=== PATIENT | female | born 1985 | race Caucasian/White ===

== ENCOUNTER 2017-05-15 10:54 | Emergency (ER) | payer BC ==
[2017-05-15 11:57] VITALS: BP 122/67
--- NOTE | 2017-05-15 12:39 | UC ---
Respiratory Complaint HPI - HPI Summary HPI Summary: Per [place] attendant "Nasal congestion, sore throat, slight fever x3 days. " Has h/o sinus infections and feels consistent. h/o frx'd nose that makes her prone to them. uses amox usually. No exudate. + swollen glands. + nasal congestion. mild AM cough. no wheezing. no asthma. denies . LMP last week. not on OCP - History of Current Complaint Chief Complaint: UCGeneralIllness Stated Complaint: CONGESTION,THROAT COMPLAINT Time Seen by Provider: 05/15/17 12:31 Hx Last Menstrual Period: 1 wk ago - Allergies/Home Medications Allergies/Adverse Reactions: Allergies Allergy/AdvReac Type Severity Reaction Status Date / Time No Known Allergies Allergy Verified 05/15/17 11:53 Home Medications: Home Medications Acetaminophen TAB* [Tylenol TAB*] 650 mg PO Q4H PRN 05/15/17 [History Confirmed 05/15/17] Multivitamins/Minerals TAB* [Thera M Plus TAB*] 1 tab PO DAILY 05/15/17 [ History Confirmed 05/15/17] PMH/Surg Hx/FS Hx/Imm Hx Previously Healthy: Yes Other History Of: Negative For: HIV, Hepatitis B, Hepatitis C, Anticoagulant Therapy - Surgical History Surgical History: None - Family History Known Family History: Positive: Hypertension, Respiratory Disease - GM asthma Negative: Cardiac Disease - Social History Alcohol Use: Occasionally Substance Use Type: None Smoking Status (MU): Never Smoked Tobacco - Immunization History Most Recent Influenza Vaccination: July 2015 Review of Systems Constitutional: Fever - Tmax 99, Fatigue Skin: Negative Eyes: Negative ENT: Sore Throat, Nasal Discharge, Sinus Congestion, Sinus Pain/Tenderness Respiratory: Cough Cardiovascular: Negative Gastrointestinal: Negative Genitourinary: Negative Motor: Negative Neurovascular: Negative Musculoskeletal: Negative Neurological: Negative Psychological: Negative Is Patient Immunocompromised?: No All Other Systems Reviewed And Are Negative: Yes Physical Exam Triage Information Reviewed: Yes Appearance: No Pain Distress, Well-Nourished, Ill-Appearing - mild Vital Signs: Initial Vital Signs Temp 98.2 F 05/15/17 11:54 Pulse 80 05/15/17 11:54 Resp 16 05/15/17 11:54 BP 122/67 05/15/17 11:54 Pulse Ox 99 05/15/17 11:54 Vital Signs Reviewed: Yes Eye Exam: Normal ENT: Positive: Pharyngeal erythema - +, Nasal drainage, TMs normal, Other: - + b /l max and frontal tenderness. Negative: Tonsillar swelling, Tonsillar exudate , Muffled/hoarse voice Dental Exam: Normal Neck exam: Normal Neck: Positive: Supple, Nontender, No Lymphadenopathy Respiratory Exam: Normal Respiratory: Positive: Lungs clear, Normal breath sounds, No respiratory distress, No accessory muscle use. Negative: Crackles, Rhonchi, Stridor, Wheezing Cardiovascular Exam: Normal Cardiovascular: Positive: RRR, No Murmur, Pulses Normal Abdominal Exam: Normal Abdomen Description: Positive: Nontender Musculoskeletal: Negative: No Edema Neurological Exam: Normal Psychological Exam: Normal Skin Exam: Normal UC Diagnostic Evaluation - Laboratory O2 Sat by Pulse Oximetry: 99 Respiratory Course/Dx - Differential Dx/Diagnosis Differential Diagnosis/HQI/PQRI: Bronchitis, Laryngitis, Sinusitis Provider Diagnoses: sinusitis Discharge - Discharge Plan Condition: Stable Disposition: HOME Prescriptions: Amoxicillin PO (*) [Amoxicillin 875 MG (*)] 875 mg PO BID #20 tab Patient Education Materials: Sinusitis (ED) Referrals: Laura Reinoso NP [Primary Care Provider] - 3 Days Additional Instructions: Make sure to take a probiotic daily while on antibiotics to help prevent a potential complication of antibiotic use called c diff. Some well known brands that can be found OTC are [email or web address], [email or web address] and [employer]. Make sure to complete the entire prescription unless advised otherwise by your health care provider
== END 2017-05-15 12:54 | disposition home or self-care (01) ==
LOC: UCCORT 10:54
DX: J32.9 Chronic sinusitis, unspecified (principal)
CPT/HCPCS: 99212; G0463

== ENCOUNTER 2017-05-21 12:28 | Emergency (ER) | payer BC ==
--- NOTE | 2017-05-21 13:38 | UC ---
Respiratory Complaint HPI - HPI Summary HPI Summary: cough for about a week. she was seen here last week for sinus pressure and possible infection and was placed on augmentin. she is still taking this. she denies pain but more pressure in the sinuses. she had hemoptysis today but denies sob or calf symptoms. - History of Current Complaint Stated Complaint: COUGH Time Seen by Provider: 05/21/17 13:24 Hx Obtained From: Patient Hx Last Menstrual Period: 1 wk ago Onset/Duration: Gradual Onset, Lasting Days Timing: Constant Severity Initially: Moderate Severity Currently: Moderate Character: Cough: Productive Aggravating Factors: Deep Breaths, Recumbent Position Alleviating Factors: Nothing Associated Signs And Symptoms: Positive: Hemoptysis, URI, Nasal Congestion. Negative: Dyspnea, Fever, Chills, Calf Pain, Calf Swelling, Edema - Allergies/Home Medications Allergies/Adverse Reactions: Allergies Allergy/AdvReac Type Severity Reaction Status Date / Time No Known Allergies Allergy Verified 05/21/17 13:49 PMH/Surg Hx/FS Hx/Imm Hx Previously Healthy: Yes Other History Of: Negative For: HIV, Hepatitis B, Hepatitis C, Anticoagulant Therapy - Surgical History Surgical History: None - Family History Known Family History: Positive: Hypertension, Respiratory Disease - GM asthma Negative: Cardiac Disease - Social History Alcohol Use: Occasionally Substance Use Type: None Smoking Status (MU): Never Smoked Tobacco - Immunization History Most Recent Influenza Vaccination: July 2015 Review of Systems Respiratory: Cough All Other Systems Reviewed And Are Negative: Yes Physical Exam Triage Information Reviewed: Yes Appearance: Well-Appearing, Obese Vital Signs Reviewed: Yes Eye Exam: Normal Eyes: Positive: Conjunctiva Clear ENT Exam: Normal Neck exam: Normal Neck: Positive: Supple, Nontender, No Lymphadenopathy Respiratory Exam: Normal Respiratory: Positive: Lungs clear, Normal breath sounds, No respiratory distress, No accessory muscle use. Negative: Respiratory distress, Decreased breath sounds, Accessory muscle use, Crackles, Rhonchi, Stridor, Wheezing Cardiovascular Exam: Normal, Other - hr 70 Abdominal Exam: Normal Musculoskeletal Exam: Normal Musculoskeletal: Positive: Strength Intact, ROM Intact, No Edema, Other: - neg homans good.. Negative: Edema @ Neurological Exam: Normal Psychological Exam: Normal Skin Exam: Normal Respiratory Course/Dx - Course Course Of Treatment: no sob or tachycardia nor calf pain/findings to suggest dvt or PE. there was mild hemoptysis today whcich was mild. we will check for pneumonia and if neg, we will stay with augmentin. she agrees to add a decongestant. - Differential Dx/Diagnosis Provider Diagnoses: acute bronchitis Discharge - Discharge Plan Condition: Good Disposition: HOME Patient Education Materials: Acute Bronchitis (ED), Rhinosinusitis (ED) Referrals: Laura Reinoso, SYSTEMS PROJECT MANAGER [Primary Care Provider] - If Needed Additional Instructions: try tylenol cold and sinus or a decongestant.
--- NOTE | 2017-05-21 13:49 | RAD ---
Indication: Hemoptysis. 2 views of the chest including dual energy PA views are reviewed. No mediastinal shift is noted. Heart is of normal size and configuration. Lung morgan demonstrate no pleural fluid, pneumonia or pneumothorax. Overall no changes noted since previous exam of February 25, 2014. IMPRESSION: No active cardiopulmonary disease is noted.
[2017-05-21 13:59] VITALS: BP 123/78
== END 2017-05-21 14:00 | disposition home or self-care (01) ==
LOC: UCCORT 12:28
DX: J20.9 Acute bronchitis, unspecified (principal); J32.9 Chronic sinusitis, unspecified
CPT/HCPCS: 71020; 99211; G0463

== ENCOUNTER 2017-07-04 11:25 | Emergency (ER) | payer BC | END 2017-07-04 13:56 | disposition left against medical advice (07) | LOC: UCCORT 11:25 | DX: Z53.21 Procedure and treatment not carried out due to patient leaving prior to being seen by health care provider (principal) ==

== ENCOUNTER 2017-07-04 19:57 | Emergency (ER) | payer BC ==
[2017-07-04 20:11] VITALS: BP 115/69
--- NOTE | 2017-07-04 20:21 | UC ---
Ear Complaint HPI - HPI Summary HPI Summary: 32 YEAR OLD FEMALE PRESENTS WITH COMPLAINS OF LEFT EARRING PAIN AFTER BLUNT TRAUMA. - History of Current Complaint Chief Complaint: UCEar Stated Complaint: INFECTED PIERCING Time Seen by Provider: 07/04/17 20:15 Hx Obtained From: Patient Hx Last Menstrual Period: 06/27/17 Onset/Duration: Sudden Onset Severity Initially: Moderate Severity Currently: Moderate Pain Scale Used: 0-10 Numeric - 5 - Allergies/Home Medications Allergies/Adverse Reactions: Allergies Allergy/AdvReac Type Severity Reaction Status Date / Time No Known Allergies Allergy Verified 07/04/17 20:12 PMH/Surg Hx/FS Hx/Imm Hx Previously Healthy: Yes Other History Of: Negative For: HIV, Hepatitis B, Hepatitis C, Anticoagulant Therapy - Surgical History Surgical History: None - Family History Known Family History: Positive: Hypertension, Respiratory Disease - GM asthma Negative: Cardiac Disease - Social History Alcohol Use: Occasionally Substance Use Type: None Smoking Status (MU): Never Smoked Tobacco - Immunization History Most Recent Influenza Vaccination: July 2015 Review of Systems Constitutional: Negative Skin: Other - LEFT EAR PAIN AT EARRING SITE Eyes: Negative ENT: Negative Respiratory: Negative Cardiovascular: Negative Gastrointestinal: Negative Genitourinary: Negative Motor: Negative Neurovascular: Negative Musculoskeletal: Negative Neurological: Negative Psychological: Negative All Other Systems Reviewed And Are Negative: Yes Physical Exam Triage Information Reviewed: Yes Appearance: Well-Appearing Vital Signs: Initial Vital Signs Temp 36.4 C 07/04/17 20:07 Pulse 79 07/04/17 20:07 Resp 18 07/04/17 20:07 BP 115/69 07/04/17 20:07 Pulse Ox 100 07/04/17 20:07 Vital Signs Reviewed: Yes Eye Exam: Normal ENT Exam: Normal ENT: Positive: Other - LEFT EARRING PAIN/SWELLING/ERYTHEMA Dental Exam: Normal Neck exam: Normal Neck: Positive: 1 Respiratory Exam: Normal Cardiovascular Exam: Normal Abdominal Exam: Normal Musculoskeletal Exam: Normal Neurological Exam: Normal Psychological Exam: Normal Skin Exam: Normal Ear Complaint Course/Dx - Differential Dx/Diagnosis Provider Diagnoses: LEFT EARRING PAIN. LEFT EARRING ERYTHEMA Discharge - Discharge Plan Condition: Stable Disposition: HOME Prescriptions: Cephalexin CAP* [Keflex CAP*] 500 mg PO TID #30 cap Patient Education Materials: Pierced Earlobe Infection (ED) Referrals: Laura Reinoso NP [Nurse Practitioner] -
== END 2017-07-04 20:32 | disposition home or self-care (01) ==
LOC: UCCORT 19:57
DX: H92.02 Otalgia, left ear (principal); L53.8 Other specified erythematous conditions
CPT/HCPCS: 99212; G0463

== ENCOUNTER 2017-09-01 16:31 | Emergency (ER) | payer BC ==
[2017-09-01 17:09] VITALS: BP 116/76
--- NOTE | 2017-09-01 17:28 | UC ---
Respiratory Complaint HPI - HPI Summary HPI Summary: has been cough for 2 weeks this morning when she awoke she coughed up blood times 2 no further episodes - History of Current Complaint Chief Complaint: UCRespiratory Stated Complaint: COUGHING UP BLOOD Time Seen by Provider: 09/01/17 17:21 Hx Obtained From: Patient Hx Last Menstrual Period: 08/18/17 ?: No Onset/Duration: Gradual Onset, Lasting Weeks - 2 Timing: Constant Severity Initially: Mild Severity Currently: Mild Character: Cough: Productive Aggravating Factors: Nothing Alleviating Factors: Nothing Associated Signs And Symptoms: Positive: Pleuritic Chest Pain, Hemoptysis, URI - Allergies/Home Medications Allergies/Adverse Reactions: Allergies Allergy/AdvReac Type Severity Reaction Status Date / Time No Known Allergies Allergy Verified 09/01/17 17:02 PMH/Surg Hx/FS Hx/Imm Hx Previously Healthy: Yes Other History Of: Negative For: HIV, Hepatitis B, Hepatitis C, Anticoagulant Therapy - Surgical History Surgical History: None - Family History Known Family History: Positive: Hypertension, Respiratory Disease - GM asthma Negative: Cardiac Disease - Social History Occupation: Employed Full-time Lives: With Family Alcohol Use: Occasionally Substance Use Type: None Smoking Status (MU): Never Smoked Tobacco Household Exposure Type: Cigarettes - Immunization History Most Recent Influenza Vaccination: July 2015 Review of Systems Constitutional: Negative Skin: Negative Eyes: Negative ENT: Negative Respiratory: Cough Cardiovascular: Negative Gastrointestinal: Negative Genitourinary: Negative Motor: Negative Neurovascular: Negative Musculoskeletal: Negative Neurological: Negative Psychological: Negative Is Patient Immunocompromised?: No All Other Systems Reviewed And Are Negative: Yes Physical Exam Triage Information Reviewed: Yes Appearance: Well-Appearing, No Pain Distress, Well-Nourished Vital Signs: Initial Vital Signs Temp 97.7 F 09/01/17 17:03 Pulse 67 09/01/17 17:03 Resp 16 09/01/17 17:03 BP 116/76 09/01/17 17:03 Pulse Ox 98 09/01/17 17:03 Vital Signs Reviewed: Yes Eye Exam: Normal Eyes: Positive: Conjunctiva Clear ENT Exam: Normal ENT: Positive: Normal ENT inspection, Hearing grossly normal, Pharynx normal, Pharyngeal erythema, TMs normal, Uvula midline. Negative: Tonsillar swelling, Tonsillar exudate, Trismus, Muffled voice, Hoarse voice, Sinus tenderness Dental Exam: Normal Neck exam: Normal Neck: Positive: Supple, Nontender, No Lymphadenopathy Respiratory Exam: Normal Respiratory: Positive: Chest non-tender, No respiratory distress, No accessory muscle use, Wheezing Cardiovascular Exam: Normal Cardiovascular: Positive: RRR, No Murmur, Pulses Normal, Brisk Capillary Refill Musculoskeletal Exam: Normal Musculoskeletal: Positive: Strength Intact, ROM Intact, No Edema Neurological Exam: Normal Neurological: Positive: Alert, Muscle Tone Normal Psychological Exam: Normal Skin Exam: Normal UC Diagnostic Evaluation - Laboratory O2 Sat by Pulse Oximetry: 98 - Radiology Xray Interpretation: No Acute Changes Radiology Interpretation Completed By: ED Physician, Radiologist Respiratory Course/Dx - Course Course Of Treatment: abluterol, robitussin and codiene, zithromax, increase fluids, follow with pcp - Differential Dx/Diagnosis Provider Diagnoses: Acute Bronchitis, Hemoptysis Discharge - Discharge Plan Condition: Stable Disposition: HOME Prescriptions: Albuterol HFA INHALER* [Ventolin HFA Inhaler*] 2 puff INH Q4H PRN #1 mdi PRN Reason: cough Azithromycin TAB* [Zithromax TAB (Z-ANUPAM) 250 mg #6 tabs] 2 tab PO .TODAY, THEN 1 DAILY #1 anupam predniSONE TAB* [Deltasone TAB*] 50 mg PO DAILY #4 tab Patient Education Materials: Acute Bronchitis (ED), Hemoptysis (ED) Referrals: [facility] [Outside] - 2 Weeks
--- NOTE | 2017-09-01 18:00 | RAD ---
INDICATION: Cough up blood. COMPARISON: Comparison is made with a prior study from May 21, 2017. TECHNIQUE: Dual-energy PA and lateral views of the chest were obtained. FINDINGS: The heart is within normal limits in size. Mediastinal and hilar contours appear within normal limits. The lungs are clear. No pleural effusion is present. IMPRESSION: NO EVIDENCE FOR ACTIVE CARDIOPULMONARY DISEASE.
== END 2017-09-01 18:21 | disposition home or self-care (01) ==
LOC: UCCORT 16:31
DX: J20.9 Acute bronchitis, unspecified (principal); R04.2 Hemoptysis
CPT/HCPCS: 71020; 99212; G0463

== ENCOUNTER 2017-10-14 07:39 | Emergency (ER) | payer BC ==
[2017-10-14 08:00] VITALS: BP 124/81
--- NOTE | 2017-10-14 08:43 | UC ---
UC General HPI - HPI Summary HPI Summary: 32 yo female c/o last few days runny nose, feeling run down. Since yesterday all of a sudden cough (mild prod yellow-green), fever, no rash, h/a, runny nose , myalgias. No GI reported. No reported. - History of Current Complaint Chief Complaint: UCRespiratory Stated Complaint: STUFFY/FEVER Time Seen by Provider: 10/14/17 08:05 Hx Obtained From: Patient Hx Last Menstrual Period: 10/08/17 Pain Intensity: 5 - Allergy/Home Medications Allergies/Adverse Reactions: Allergies Allergy/AdvReac Type Severity Reaction Status Date / Time No Known Allergies Allergy Verified 10/14/17 07:50 Home Medications: Home Medications Dm/Acetaminophen/Doxylamine [Nighttime Cold-Flu Liquid] 237 ml PO QPM PRN [History Confirmed 10/14/17] Multivitamin [Multivitamins] 1 cap PO QAM 10/14/17 [History Confirmed 10/14/17] PMH/Surg Hx/FS Hx/Imm Hx Previously Healthy: Yes Other History Of: Negative For: HIV, Hepatitis B, Hepatitis C, Anticoagulant Therapy - Surgical History Surgical History: None - Family History Known Family History: Positive: Hypertension, Respiratory Disease - GM asthma Negative: Cardiac Disease - Social History Alcohol Use: Occasionally Substance Use Type: None Smoking Status (MU): Former Smoker Household Exposure Type: Cigarettes - Immunization History Most Recent Influenza Vaccination: July 2015 Review of Systems Constitutional: Fever Skin: Negative Eyes: Negative ENT: Sore Throat, Nasal Discharge, Sinus Congestion Respiratory: Cough Cardiovascular: Negative Gastrointestinal: Negative Genitourinary: Negative Motor: Negative Neurovascular: Negative Musculoskeletal: Myalgia Neurological: Headache Is Patient Immunocompromised?: No All Other Systems Reviewed And Are Negative: Yes Physical Exam Triage Information Reviewed: Yes Appearance: Well-Nourished - sitting up looks tired nad Vital Signs: Initial Vital Signs Temp 98.8 F 10/14/17 07:55 Pulse 96 10/14/17 07:55 Resp 18 10/14/17 07:55 BP 124/81 10/14/17 07:55 Pulse Ox 99 10/14/17 07:55 Vital Signs Reviewed: Yes Eye Exam: Normal - grossly normal ENT: Positive: Pharyngeal erythema - mild red, Other - tm's caruso, rtxd. eacs ok Neck exam: Normal Neck: Positive: Supple, Nontender, No Lymphadenopathy Respiratory Exam: Normal Respiratory: Positive: Chest non-tender, Lungs clear, Normal breath sounds, No respiratory distress Cardiovascular Exam: Normal Cardiovascular: Positive: RRR, Pulses Normal, Brisk Capillary Refill Abdominal Exam: Normal Abdomen Description: Positive: Nontender Musculoskeletal Exam: Normal Neurological Exam: Normal - grossly nonfocal Psychological Exam: Normal - conversing easily and appropriately Skin Exam: Normal Course/Dx - Course Course Of Treatment: Influenza A +. Reviewed coa / tx plan with pt. patrick as posed answered to the best of my abiltiy. Seek medical attention for worse or new problems - Differential Dx - Multi-Symptom Provider Diagnoses: Influenza A Discharge - Discharge Plan Condition: Stable Disposition: HOME Patient Education Materials: Influenza (ED) Referrals: Non Staff,Doctor [Primary Care Provider] - Additional Instructions: Influenza A. Seek medical attention for worse or new problems. Do not go to work until no fever x 24 hours, without anti-fever medications. Drink plenty of water.
== END 2017-10-14 09:06 | disposition home or self-care (01) ==
LOC: UCCORT 07:39
DX: J09.X2 Influenza due to identified novel influenza A virus with other respiratory manifestations (principal); Z87.891 Personal history of nicotine dependence
CPT/HCPCS: 87502; 99212; G0463

== ENCOUNTER 2017-10-18 13:44 | Emergency (ER) | payer BC ==
[2017-10-18 16:56] VITALS: BP 132/84
--- NOTE | 2017-10-18 18:06 | UC ---
Throat Pain/Nasal Marcio HPI - HPI Summary HPI Summary: Pt with + flu A Pt with progressive pressure and discomfort in sinuses L>R + thick, green secretions + PND with sore throat tactile temp + ear pain L>R + cough with yellow sputum no cp, no abd pain no n/v. Pt currently treated for flu Pt's medications reviewed this visit - History of Current Complaint Chief Complaint: UCGeneralIllness Stated Complaint: SINUSES Time Seen by Provider: 10/18/17 17:38 Hx Obtained From: Patient Hx Last Menstrual Period: 10/08/17 Onset/Duration: Gradual Onset Pain Intensity: 5 - Allergies/Home Medications Allergies/Adverse Reactions: Allergies Allergy/AdvReac Type Severity Reaction Status Date / Time No Known Allergies Allergy Verified 10/18/17 16:54 PMH/Surg Hx/FS Hx/Imm Hx Previously Healthy: Yes Other History Of: Negative For: HIV, Hepatitis B, Hepatitis C, Anticoagulant Therapy - Surgical History Surgical History: None - Family History Known Family History: Positive: Hypertension, Respiratory Disease - GM asthma Negative: Cardiac Disease - Social History Occupation: Employed Full-time Lives: With Family Alcohol Use: Occasionally Substance Use Type: None Smoking Status (MU): Former Smoker Household Exposure Type: Cigarettes - Immunization History Most Recent Influenza Vaccination: July 2015 Review of Systems Constitutional: Fever Skin: Negative Eyes: Negative ENT: Sore Throat, Ear Ache, Sinus Congestion, Sinus Pain/Tenderness Respiratory: Cough Cardiovascular: Negative Gastrointestinal: Negative Genitourinary: Negative Motor: Negative Neurovascular: Negative Musculoskeletal: Negative Neurological: Negative Psychological: Negative All Other Systems Reviewed And Are Negative: Yes Physical Exam Triage Information Reviewed: Yes Appearance: Other: - congested, tired appearing Vital Signs: Initial Vital Signs Temp 99 F 10/18/17 16:51 Pulse 93 10/18/17 16:51 Resp 18 10/18/17 16:51 BP 132/84 10/18/17 16:51 Pulse Ox 99 10/18/17 16:51 Vital Signs Reviewed: Yes Eye Exam: Normal ENT: Positive: Nasal congestion, TM bulging, TM red, Sinus tenderness, Uvula midline, Other - fluid b/l TM L>R + erythema, buldge on left turbinates inflammed and boggy thick secretions + PND uvula midline no exudate + TTP max sinus L>R Dental Exam: Normal Neck exam: Normal Neck: Positive: Supple, Nontender, No Lymphadenopathy Respiratory Exam: Normal Respiratory: Positive: Chest non-tender, Lungs clear, Normal breath sounds, No respiratory distress, No accessory muscle use Cardiovascular Exam: Normal Cardiovascular: Positive: RRR Abdominal Exam: Normal Abdomen Description: Positive: Nontender, No Organomegaly, Soft Bowel Sounds: Positive: Present Musculoskeletal Exam: Normal Neurological Exam: Normal Psychological Exam: Normal Skin Exam: Normal Throat Pain/Nasal Course/Dx - Course Assessment/Plan: Pt with recent viral flu - progressive sinus pressure, pnd, fever, facial pain. pt with sinusitis on exam. will rx abx, flonase. secretio precaution. decongestant - Differential Dx/Diagnosis Provider Diagnoses: sinusitis Discharge - Discharge Plan Condition: Stable Disposition: HOME Prescriptions: Azithromycin TAB* [Zithromax TAB (Z-ANUPAM) 250 mg #6 tabs] 2 tab PO .TODAY, THEN 1 DAILY #1 anupam Fluticasone NASAL SPRAY 50MCG* [Flonase NASAL SPRAY 50MCG*] 2 spray BOTH NARES DAILY #1 btl Patient Education Materials: Sinusitis (ED) Forms: *Work Release Referrals: No Primary Care Phys,NOPCP [Primary Care Provider] - Additional Instructions: - Stay well hydrated. Drink plenty of non-alcoholic, non-caffinated beverages. - Alternate ibuprofen (Advil, Motrin) 600mg and Tylenol every 3 hours for pain or fever. Take with food. Do NOT take for more than 4-5 days. - These infections are spread by secretions - do NOT share eating or drinking utensils - clean items you share with other people such as cell phones, computer mouse, TV remote, computer tablets, etc. After you have taken antibiotics for 3 days, change your toothbrush and your pillowcase. - use nasal spray as prescribed - get plenty of restful sleep - humidify the air in the room where you sleep - boil water, run a hot steam shower, vaporizer, cups of water by heat register - okay to take over the counter decongestant and cough medication - use nasal spray as prescribed. - if your symptoms persist over the next 24 hours, okay to take antibiotic as prescribed -Return here or go to the emergency department with questions or concerns
== END 2017-10-18 18:26 | disposition home or self-care (01) ==
LOC: UCCORT 13:44
DX: J32.9 Chronic sinusitis, unspecified (principal); Z87.891 Personal history of nicotine dependence
CPT/HCPCS: 99212; G0463

== ENCOUNTER 2018-04-04 09:41 | Emergency (ER) | payer BC ==
[2018-04-04 10:00] VITALS: BP 119/76
--- NOTE | 2018-04-04 10:46 | RAD ---
HISTORY: right leg pain COMPARISONS: None relevant TECHNIQUE: Multiple transverse and longitudinal ultrasound images were obtained of the right lower extremity from the level of the common femoral vein inferiorly through to the infrapopliteal veins using grayscale, color Doppler, and spectral Doppler imaging with and without compression and with augmentation. Comparison images were obtained of the contralateral common femoral vein. FINDINGS: VEINS: The venous system of the right lower extremity is compressible throughout its course, with normal flow on color Doppler imaging and normal response to augmentation on spectral Doppler imaging. SOFT TISSUES: Unremarkable. OTHER FINDINGS: None. IMPRESSION: NO RIGHT LOWER EXTREMITY DEEP VEIN THROMBOSIS
--- NOTE | 2018-04-04 11:11 | UC ---
Lower Extremity/Ankle HPI - HPI Summary HPI Summary: right lower leg pain x 1 week + swelling, of right lower leg/ calf, thigh , tender to touch , + swollen superficial veins no fever, no chills, no recent travel , + - History of Current Complaint Chief Complaint: UCGeneralIllness Stated Complaint: RIGHT LEG COMPLAINT Time Seen by Provider: 04/04/18 10:08 Hx Obtained From: Patient Hx Last Menstrual Period: 10/08/17 Onset/Duration: Gradual Onset, Lasting Weeks - 2, Still Present Severity Initially: Moderate Severity Currently: Moderate Pain Intensity: 0 Pain Scale Used: 0-10 Numeric Aggravating Factor(s): Standing, Ambulation Alleviating Factor(s): Rest, Elevation Able to Bear Weight: Yes - Risk Factors DVT Risk Factors: - Allergies/Home Medications Allergies/Adverse Reactions: Allergies Allergy/AdvReac Type Severity Reaction Status Date / Time No Known Allergies Allergy Verified 04/04/18 10:00 Home Medications: Home Medications 38/Iron/Folate 6/Dha [Prenate Dha] 1 cap PO BEDTIME 04/04/18 [History Confirmed 04/04/18] PMH/Surg Hx/FS Hx/Imm Hx Previously Healthy: Yes Other History Of: Negative For: HIV, Hepatitis B, Hepatitis C, Anticoagulant Therapy - Surgical History Surgical History: None - Family History Known Family History: Positive: Hypertension, Respiratory Disease - GM asthma Negative: Cardiac Disease - Social History Alcohol Use: None Substance Use Type: None Smoking Status (MU): Former Smoker Length of Time of Smoking/Using Tobacco: "approx 5 yrs" When Did the Patient Quit Smoking/Using Tobacco: 2010 Household Exposure Type: Cigarettes - Immunization History Most Recent Influenza Vaccination: July 2015 Review of Systems Constitutional: Negative Skin: Negative Eyes: Negative ENT: Negative Respiratory: Negative Cardiovascular: Negative Is Patient Immunocompromised?: No All Other Systems Reviewed And Are Negative: Yes Physical Exam Triage Information Reviewed: Yes Appearance: Well-Appearing, No Pain Distress, Well-Nourished Vital Signs: Initial Vital Signs Temp 98.5 F 04/04/18 09:53 Pulse 88 04/04/18 09:53 Resp 16 04/04/18 09:53 BP 119/76 04/04/18 09:53 Pulse Ox 100 04/04/18 09:53 Eye Exam: Normal Eyes: Positive: Conjunctiva Clear ENT: Positive: Normal ENT inspection, Hearing grossly normal, Pharynx normal Neck: Positive: Supple, Nontender Respiratory: Positive: Chest non-tender, Lungs clear, Normal breath sounds Cardiovascular: Positive: RRR, No Murmur, Pulses Normal Musculoskeletal: Positive: ROM Intact, No Edema, Other: - + swollen superficial veins right lower leg and right thigh Lower Extremity Course/Dx - Differential Dx/Diagnosis Provider Diagnoses: superficial thrombophlibitis right leg Discharge - Sign-Out/Discharge Documenting (check all that apply): Patient Departure - Discharge Plan Condition: Stable Disposition: HOME Patient Education Materials: Superficial Thrombophlebitis (ED) Referrals: No Primary Care Phys,NOPCP [Primary Care Provider] - 7 Days - Billing Disposition and Condition Condition: STABLE Disposition: Home
== END 2018-04-04 10:56 | disposition home or self-care (01) ==
LOC: UCCORT 09:41
DX: I80.01 Phlebitis and thrombophlebitis of superficial vessels of right lower extremity (principal); Z87.891 Personal history of nicotine dependence
CPT/HCPCS: 99211; G0463

== ENCOUNTER 2018-05-13 18:53 | Emergency (ER) | payer BC, MEDICAID ==
[2018-05-13 19:30] VITALS: BP 127/58
[2018-05-13] MEDS ORDERED: predniSONE TAB* 20 MG PO ONE (19:47)
[2018-05-13] MEDS ORDERED: Albuterol HFA INHALER* 8 gm MDI INH ONE (19:47)
--- NOTE | 2018-05-13 19:47 | UC ---
Respiratory Complaint HPI - HPI Summary HPI Summary: C/O URI x 4 days. Diagnosed with sinusitis and on Augmentin. C/O worsening wheezing with cough. - History of Current Complaint Chief Complaint: UCRespiratory Stated Complaint: STUFFY/COUGH Time Seen by Provider: 05/13/18 19:36 Hx Obtained From: Patient Hx Last Menstrual Period: November 2017 ?: Yes Onset/Duration: Gradual Onset, Lasting Days - 4, Worse Since - today Severity Initially: Mild Severity Currently: Moderate Pain Intensity: 6 Character: Cough: Productive Aggravating Factors: Deep Breaths, Recumbent Position Alleviating Factors: Nothing Associated Signs And Symptoms: Positive: Dyspnea, Chills, Pleuritic Chest Pain, Wheezing, URI, Nasal Congestion, Hoarseness, Sinus Discomfort Related History: Seasonal Allergies - Risk Factors Pulmonary Embolism Risk Factors: - Allergies/Home Medications Allergies/Adverse Reactions: Allergies Allergy/AdvReac Type Severity Reaction Status Date / Time No Known Allergies Allergy Verified 04/04/18 10:00 Home Medications: Home Medications guaiFENesin LIQ* [Robitussin*] 10 ml PO ONCE PRN 05/13/18 [History Confirmed 04/22] PMH/Surg Hx/FS Hx/Imm Hx - Additional Past Medical History Additional PMH: 22 weeks. Other History Of: Negative For: HIV, Hepatitis B, Hepatitis C, Anticoagulant Therapy - Surgical History Surgical History: None - Family History Known Family History: Positive: Hypertension, Diabetes, Respiratory Disease - GM asthma Negative: Cardiac Disease - Social History Occupation: Employed Full-time Lives: With Family Alcohol Use: None Substance Use Type: None Smoking Status (MU): Former Smoker Length of Time of Smoking/Using Tobacco: "approx 5 yrs" When Did the Patient Quit Smoking/Using Tobacco: 2010 Household Exposure Type: Cigarettes - Immunization History Most Recent Influenza Vaccination: July 2015 Review of Systems Constitutional: Chills, Fatigue ENT: Sore Throat, Nasal Discharge, Sinus Congestion Respiratory: Shortness Of Breath, Cough Cardiovascular: Chest Pain - with coughing. Is Patient Immunocompromised?: Yes - All Other Systems Reviewed And Are Negative: Yes Physical Exam Triage Information Reviewed: Yes Appearance: No Pain Distress, Well-Nourished, Ill-Appearing Vital Signs: Initial Vital Signs Temp 98.7 F 05/13/18 19:17 Pulse 106 05/13/18 19:17 Resp 14 05/13/18 19:17 BP 127/58 05/13/18 19:17 Pulse Ox 99 05/13/18 19:17 Vital Signs Reviewed: Yes Eyes: Positive: Conjunctiva Inflamed ENT: Positive: Pharynx normal, Nasal congestion, TMs normal Neck exam: Normal Respiratory: Positive: Wheezing - mild end expiratory wheeze Cardiovascular Exam: Normal Musculoskeletal: Positive: Edema @ - pretibial 2+ bilaterally Neurological Exam: Normal Psychological Exam: Normal Skin Exam: Normal UC Diagnostic Evaluation - Laboratory O2 Sat by Pulse Oximetry: 99 Respiratory Course/Dx - Differential Dx/Diagnosis Differential Diagnosis/HQI/PQRI: Asthma, Lower Resp Infection, Sinusitis Provider Diagnoses: Acute URI. Acute bronchospasm Discharge - Sign-Out/Discharge Documenting (check all that apply): Patient Departure All imaging exams completed and their final reports reviewed: No Studies - Discharge Plan Condition: Stable Disposition: HOME Prescriptions: predniSONE TAB* [Deltasone 20 MG TAB*] 20 mg PO DAILY #18 tab Patient Education Materials: Upper Respiratory Infection (DC), Wheezing (ED), Prednisone (By mouth), How to Use a Metered-Dose Inhaler (ED) Referrals: Laura Reinoso NP [Primary Care Provider] - - Billing Disposition and Condition Condition: STABLE Disposition: Home
== END 2018-05-13 20:03 | disposition home or self-care (01) ==
LOC: UCCORT 18:53
DX: J06.9 Acute upper respiratory infection, unspecified (principal); J98.01 Acute bronchospasm
CPT/HCPCS: 99212; A9270-GY; G0463; J7512

== ENCOUNTER 2018-06-27 15:34 | Emergency (ER) | payer BC ==
[2018-06-27 15:58] VITALS: BP 114/71
--- NOTE | 2018-06-27 16:06 | UC ---
UC General HPI - HPI Summary HPI Summary: pt c/o 4 day hx sore throat, laryngitis and cough. no fever or sob. coworker with strep throat. want to r/o strep throat. Baby movement felt. - History of Current Complaint Chief Complaint: UCRespiratory Stated Complaint: SORE THROAT LARYNGITIS Time Seen by Provider: 06/27/18 15:59 Hx Obtained From: Patient Hx Last Menstrual Period: November 2017 Onset/Duration: Gradual Onset Timing: Constant Pain Intensity: 5 Alleviating: nothing Associated Signs & Symptoms: Positive: Cough. Negative: Fever, SOB, Wheezing - Allergy/Home Medications Allergies/Adverse Reactions: Allergies Allergy/AdvReac Type Severity Reaction Status Date / Time No Known Allergies Allergy Verified 06/27/18 15:54 PMH/Surg Hx/FS Hx/Imm Hx - Additional Past Medical History Additional PMH: currently Other History Of: Negative For: HIV, Hepatitis B, Hepatitis C, Anticoagulant Therapy - Surgical History Surgical History: None - Family History Known Family History: Positive: Hypertension, Diabetes, Respiratory Disease - GM asthma Negative: Cardiac Disease - Social History Occupation: Employed Full-time Lives: With Family Alcohol Use: None Substance Use Type: None Smoking Status (MU): Former Smoker Length of Time of Smoking/Using Tobacco: "approx 5 yrs" When Did the Patient Quit Smoking/Using Tobacco: 2010 Household Exposure Type: Cigarettes - Immunization History Most Recent Influenza Vaccination: July 2015 Most Recent Tetanus Shot: UTD Vaccination Up to Date: Yes Review of Systems Constitutional: Negative Skin: Negative Eyes: Negative ENT: Sore Throat Respiratory: Cough Cardiovascular: Negative Gastrointestinal: Negative Genitourinary: Negative Motor: Negative Neurovascular: Negative Musculoskeletal: Negative Neurological: Negative Psychological: Negative Is Patient Immunocompromised?: No All Other Systems Reviewed And Are Negative: Yes Physical Exam Triage Information Reviewed: Yes Appearance: Well-Appearing Vital Signs: Initial Vital Signs Temp 97.6 F 06/27/18 15:54 Pulse 82 06/27/18 15:54 Resp 16 06/27/18 15:54 BP 114/71 06/27/18 15:54 Pulse Ox 99 06/27/18 15:54 Eye Exam: Normal Eyes: Positive: Conjunctiva Clear ENT: Positive: Pharyngeal erythema - slight, TMs normal, Hoarse voice, Uvula midline, Other - No stridor. Negative: Nasal congestion, Nasal drainage, Tonsillar swelling, Tonsillar exudate, Trismus, Muffled voice Neck: Positive: Supple, Nontender, No Lymphadenopathy Respiratory: Positive: Lungs clear, Normal breath sounds, No respiratory distress Cardiovascular: Positive: RRR, No Murmur Abdomen Description: Positive: Nontender. Negative: Distended, Guarding, Hepatomegaly, Splenomegaly, Other: - Grvavid uterus Bowel Sounds: Positive: Present Musculoskeletal: Positive: ROM Intact Neurological: Positive: Alert Psychological: Positive: Age Appropriate Behavior Skin Exam: Normal Diagnostics - Laboratory Diagnostic Studies Completed/Ordered: rapid strep=neg Course/Dx - Course Course Of Treatment: rapid strep=neg. tx supportive. need for close f/u advised. - Differential Dx - Multi-Symptom Provider Diagnoses: Sore throat, laryngitis, cough Discharge - Sign-Out/Discharge Documenting (check all that apply): Patient Departure All imaging exams completed and their final reports reviewed: No Studies - Discharge Plan Condition: Stable Disposition: HOME Patient Education Materials: Pharyngitis (ED), Laryngitis (ED), Acute Cough (ED ) Forms: *Work Release Referrals: Laura Reinoso NP [Primary Care Provider] - 5 Days Nawaf Martines MD [Medical Doctor] - 5 Days Additional Instructions: FOLLOW UP WITH DR MARTINES OR [facility]. MENDOSA IN 5 DAYS FOR A RECHECK OR SOONER IF WORSE. - Billing Disposition and Condition Condition: STABLE Disposition: Home
== END 2018-06-27 16:30 | disposition home or self-care (01) ==
LOC: UCCORT 15:34
DX: J02.9 Acute pharyngitis, unspecified (principal); R05 Cough; J04.0 Acute laryngitis; Z87.891 Personal history of nicotine dependence
CPT/HCPCS: 87651; 99211; G0463

== ENCOUNTER 2018-11-25 16:16 | Emergency (ER) | payer BC ==
[2018-11-25 16:24] VITALS: BP 117/71
--- NOTE | 2018-11-25 16:30 | UC ---
General HPI - HPI Summary HPI Summary: PT'S 6 YO JUST TESTED + FOR INFLUENZA A. HE HAS A 3MONTHOLD SIBLING AT HOME. MOM IS REQUESTING TX TO PREVENT THE FLU. SHE HAS NO CURRENT SYMPTOMS. - History of Current Complaint Chief Complaint: UCRespiratory Stated Complaint: COUGH, CONGESTION Time Seen by Provider: 11/25/18 16:18 Hx Obtained From: Patient Hx Last Menstrual Period: prior to childbirth 3 months ago Pain Intensity: 0 Associated Signs & Symptoms: Negative: Cough, Fever - Allergy/Home Medications Allergies/Adverse Reactions: Allergies Allergy/AdvReac Type Severity Reaction Status Date / Time No Known Allergies Allergy Verified 11/25/18 16:21 PMH/Surg Hx/FS Hx/Imm Hx Respiratory History: Pneumonia Other History Of: Negative For: HIV, Hepatitis B, Hepatitis C, Anticoagulant Therapy - Surgical History Surgical History: None - Family History Known Family History: Positive: Hypertension, Diabetes, Respiratory Disease - GM asthma Negative: Cardiac Disease - Social History Lives: With Family Alcohol Use: None Substance Use Type: None Smoking Status (MU): Former Smoker Length of Time of Smoking/Using Tobacco: "approx 5 yrs" Have You Smoked in the Last Year: No When Did the Patient Quit Smoking/Using Tobacco: 2010 Household Exposure Type: Cigarettes - Immunization History Most Recent Influenza Vaccination: July 2015 Most Recent Tetanus Shot: UTD Vaccination Up to Date: Yes Review of Systems All Other Systems Reviewed And Are Negative: Yes Physical Exam Triage Information Reviewed: Yes Appearance: Well-Appearing Vital Signs: Initial Vital Signs Temp 97.7 F 11/25/18 16:22 Pulse 75 11/25/18 16:22 Resp 16 11/25/18 16:22 BP 117/71 11/25/18 16:22 Pulse Ox 98 11/25/18 16:22 Vital Signs Reviewed: Yes Eyes: Positive: Conjunctiva Clear ENT: Positive: Normal ENT inspection Neck: Positive: Supple, Nontender Respiratory: Positive: Lungs clear, Normal breath sounds Cardiovascular: Positive: RRR, No Murmur Abdomen Description: Positive: Nontender Bowel Sounds: Positive: Present Musculoskeletal: Positive: ROM Intact Neurological: Positive: Alert Psychological: Positive: Age Appropriate Behavior Skin Exam: Normal Course/Dx - Course Course Of Treatment: 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 - Diagnoses Provider Diagnosis: Exposure to influenza Discharge - Sign-Out/Discharge Documenting (check all that apply): Patient Departure All imaging exams completed and their final reports reviewed: No Studies - Discharge Plan Condition: Stable Disposition: HOME Prescriptions: Oseltamivir CAP* [Tamiflu CAP*] 75 mg PO DAILY 10 Days #10 cap Patient Education Materials: Influenza (DC) Forms: *Gen. Provider Communication Referrals: Laura Reinoso NP [Primary Care Provider] - If Needed - Billing Disposition and Condition Condition: STABLE Disposition: Home - Attestation Statements Provider Attestation: Per institutional requirements, I have reviewed the chart, however, I was not consulted specifically or made aware of this patient by the midlevel provider. I did not personally evaluate, interact with , or disposition this patient.
== END 2018-11-25 16:40 | disposition home or self-care (01) ==
LOC: UCCORT 16:16
DX: Z20.828 Contact with and (suspected) exposure to other viral communicable diseases (principal); Z87.891 Personal history of nicotine dependence
CPT/HCPCS: 99212; G0463

== ENCOUNTER 2019-02-20 19:46 | Emergency (ER) | payer BC ==
[2019-02-20 20:22] VITALS: BP 105/69
[2019-02-20] MEDS ORDERED: Fluorescein Sodium TOPICAL* 1 MG TEST STRIP OPHTHALMIC ONE (20:30)
[2019-02-20] MEDS ORDERED: BSS OPTH.SOL* BTL OPHTHALMIC ONE (20:30)
--- NOTE | 2019-02-20 20:33 | UC ---
Eye Complaint HPI - HPI Summary HPI Summary: left eye is itchy and red some drainage---does where contacts---has been worsening for the past 2 days - History of Current Complaint Chief Complaint: UCEye Stated Complaint: LEFT EYE CONCERN Time Seen by Provider: 02/20/19 20:21 Hx Obtained From: Patient Hx Last Menstrual Period: 02/17/19 ?: No Onset/Duration: Sudden Onset, Lasting Days - 2, Still Present Timing: Constant Pain Intensity: 5 Pain Scale Used: 0-10 Numeric Location of Injury: Conjunctiva Aggravating Factor(s): Nothing Alleviating Factor(s): Nothing Associated Signs And Symptoms: Positive: Drainage (Purulent) - Allergies/Home Medications Allergies/Adverse Reactions: Allergies Allergy/AdvReac Type Severity Reaction Status Date / Time No Known Allergies Allergy Verified 11/25/18 16:21 PMH/Surg Hx/FS Hx/Imm Hx Previously Healthy: Yes Other History Of: Negative For: HIV, Hepatitis B, Hepatitis C, Anticoagulant Therapy - Surgical History Surgical History: None - Family History Known Family History: Positive: Hypertension, Diabetes, Respiratory Disease - GM asthma Negative: Cardiac Disease - Social History Occupation: Employed Full-time Lives: With Family Alcohol Use: Rare Substance Use Type: None Smoking Status (MU): Former Smoker Length of Time of Smoking/Using Tobacco: "approx 5 yrs" Have You Smoked in the Last Year: No When Did the Patient Quit Smoking/Using Tobacco: 2010 Household Exposure Type: Cigarettes - Immunization History Most Recent Influenza Vaccination: July 2015 Most Recent Tetanus Shot: UTD Vaccination Up to Date: Yes Review of Systems All Other Systems Reviewed And Are Negative: Yes Constitutional: Positive: Negative Skin: Positive: Negative Eyes: Positive: Blurred Vision - left, Drainage - left, Eye Redness - left ENT: Positive: Negative Respiratory: Positive: Negative Cardiovascular: Positive: Negative Gastrointestinal: Positive: Negative Genitourinary: Positive: Negative Motor: Positive: Negative Neurovascular: Positive: Negative Musculoskeletal: Positive: Negative Neurological: Positive: Negative Psychological: Positive: Negative Is Patient Immunocompromised?: No Physical Exam Triage Information Reviewed: Yes Appearance: Well-Appearing, No Pain Distress, Well-Nourished Vital Signs: Initial Vital Signs Temp 97.7 F 02/20/19 20:17 Pulse 85 02/20/19 20:17 Resp 16 02/20/19 20:17 BP 105/69 02/20/19 20:17 Pulse Ox 100 02/20/19 20:17 Vital Signs Reviewed: Yes Eye Exam: Other Eyes: Positive: Conjunctiva Clear - right, Conjunctiva Inflamed - left, Discharge ENT Exam: Normal ENT: Positive: Normal ENT inspection, Hearing grossly normal, TMs normal. Negative: Nasal congestion, Nasal drainage, Trismus, Muffled voice, Hoarse voice , Dental tenderness, Sinus tenderness Dental Exam: Normal Neck exam: Normal Neck: Positive: Supple, Nontender Respiratory Exam: Normal Respiratory: Positive: Chest non-tender, No respiratory distress, No accessory muscle use Cardiovascular Exam: Normal Cardiovascular: Positive: RRR, Brisk Capillary Refill Musculoskeletal Exam: Normal Musculoskeletal: Positive: Strength Intact, ROM Intact, No Edema Neurological Exam: Normal Neurological: Positive: Alert, Muscle Tone Normal Psychological Exam: Normal Skin Exam: Normal Eye Complaint Course/Dx - Course Course Of Treatment: do not use contact lens--cipro drops follow with eye care provider--- - Differential Dx/Diagnosis Provider Diagnosis: Acute bacterial conjunctivitis of left eye Discharge - Sign-Out/Discharge Documenting (check all that apply): Patient Departure All imaging exams completed and their final reports reviewed: No Studies - Discharge Plan Condition: Stable Disposition: HOME Prescriptions: Ciprofloxacin 0.3% OPTH.SILVANO* [Cipro 0.3% Opth*] 1 drop LEFT EYE Q2H #1 btl Patient Education Materials: How to Use Eye Drops (ED), Conjunctivitis (ED) Referrals: Laura Reinoso NP [Primary Care Provider] - If Needed - Billing Disposition and Condition Condition: STABLE Disposition: Home
== END 2019-02-20 20:49 | disposition home or self-care (01) ==
LOC: UCCORT 19:46
DX: H10.32 Unspecified acute conjunctivitis, left eye (principal); A49.9 Bacterial infection, unspecified; Z87.891 Personal history of nicotine dependence
CPT/HCPCS: 99212; A9270-GY; G0463

== ENCOUNTER 2019-05-23 10:46 | Emergency (ER) | payer BC ==
[2019-05-23 11:00] VITALS: BP 127/83
--- NOTE | 2019-05-23 11:32 | UC ---
Throat Pain/Nasal Marcio HPI - HPI Summary HPI Summary: 34-year-old woman comes in with a chief complaint of runny nose and sore throat. All started yesterday. Reports the rhinorrhea is green. Sore throat is decreased in intensity since last night. No chest congestion no shortness of breath. Laying down made breathing worse today with congestion. Sitting up makes it easier breathe. - History of Current Complaint Chief Complaint: UCRespiratory Stated Complaint: CONGESTION Time Seen by Provider: 05/23/19 11:23 Hx Last Menstrual Period: 05/14/19 Pain Intensity: 5 - Allergies/Home Medications Allergies/Adverse Reactions: Allergies Allergy/AdvReac Type Severity Reaction Status Date / Time No Known Allergies Allergy Verified 05/23/19 10:57 PMH/Surg Hx/FS Hx/Imm Hx Previously Healthy: Yes Other History Of: Negative For: HIV, Hepatitis B, Hepatitis C, Anticoagulant Therapy - Surgical History Surgical History: None - Family History Known Family History: Positive: Hypertension, Diabetes, Respiratory Disease - GM asthma Negative: Cardiac Disease - Social History Alcohol Use: Rare Substance Use Type: None Smoking Status (MU): Former Smoker Length of Time of Smoking/Using Tobacco: "approx 5 yrs" Have You Smoked in the Last Year: No When Did the Patient Quit Smoking/Using Tobacco: 2010 Household Exposure Type: Cigarettes - Immunization History Most Recent Influenza Vaccination: July 2015 Most Recent Tetanus Shot: UTD Vaccination Up to Date: Yes Review of Systems All Other Systems Reviewed And Are Negative: Yes Constitutional: Positive: Negative Skin: Positive: Negative Eyes: Positive: Negative ENT: Positive: Sore Throat, Nasal Discharge, Sinus Congestion, Sinus Pain/ Tenderness Respiratory: Positive: Negative Cardiovascular: Positive: Negative Gastrointestinal: Positive: Negative Motor: Positive: Negative Neurovascular: Positive: Negative Musculoskeletal: Positive: Negative Psychological: Positive: Negative Is Patient Immunocompromised?: No Physical Exam Triage Information Reviewed: Yes Appearance: No Pain Distress, Well-Nourished, Ill-Appearing - MILD Vital Signs: Initial Vital Signs Temp 97.2 F 05/23/19 10:57 Pulse 89 05/23/19 10:57 Resp 16 05/23/19 10:57 BP 127/83 05/23/19 10:57 Pulse Ox 100 05/23/19 10:57 Vital Signs Reviewed: Yes Eye Exam: Normal Eyes: Positive: Conjunctiva Clear ENT: Positive: Pharyngeal erythema, Nasal congestion, Nasal drainage, TMs normal Neck: Positive: Supple Respiratory: Positive: Lungs clear, Normal breath sounds, No respiratory distress Cardiovascular: Positive: RRR Musculoskeletal: Positive: Strength Intact, ROM Intact Neurological: Positive: Alert, Muscle Tone Normal Psychological: Positive: Age Appropriate Behavior Skin Exam: Normal Throat Pain/Nasal Course/Dx - Course Course Of Treatment: DISCUSSED VIRAL VERSES BACTERIAL INFECTION AND THE ROLE OF ANTIBIOTICS. PATIENT PREFERS TO BE ON ANTIBIOTICS AT THIS TIME. - Differential Dx/Diagnosis Provider Diagnosis: Sinusitis Discharge ED - Sign-Out/Discharge Documenting (check all that apply): Patient Departure All imaging exams completed and their final reports reviewed: No Studies - Discharge Plan Condition: Stable Disposition: HOME Prescriptions: Amoxicillin PO (*) [Amoxicillin 875 MG (*)] 875 mg PO BID #20 tab Fluticasone NASAL SPRAY 50MCG* [Flonase NASAL SPRAY 50MCG*] 2 spray BOTH NARES DAILY #1 btl Patient Education Materials: Sinusitis (ED) Forms: *Work Release Referrals: Laura Reinoso NP [Primary Care Provider] - Additional Instructions: FOLLOW UP WITH YOUR DOCTOR IF NOT COMPLETELY IMPROVED. GET REEVALUATED SOONER IF WORSE OR ANY QUESTIONS OR CONCERNS. - Billing Disposition and Condition Condition: STABLE Disposition: Home
== END 2019-05-23 11:37 | disposition home or self-care (01) ==
LOC: UCCORT 10:46
DX: J32.9 Chronic sinusitis, unspecified (principal); Z87.891 Personal history of nicotine dependence
CPT/HCPCS: 99212; G0463